=== PATIENT | male | born 1970 | race Caucasian/White ===

== ENCOUNTER 2018-08-06 11:57 | Emergency (ER) | payer OTHER ==
[~2018-08-06] VITALS: Ht 182.9 cm; Wt 72.6 kg
[~2018-08-06 11:57] MED LIST: METR500 PO; Omeprazole20 M1 PO; Roxicodone5 MG PO; Tetracycline H500 MG PO
[2018-08-06] MEDS ORDERED: DULO30 PO (12:05)
[2018-08-06 12:29] LABS: BASOPHILS ABSOLUTE AUTO 0.06 K/mm3 (0.00-0.23); BASOPHILS PERCENT AUTO 1 % (0-2); EOSINOPHILS ABSOLUTE AUTO 0.39 K/mm3 (0.00-0.68); EOSINOPHILS PERCENT AUTO 7 % (0-6); Hemoglobin 15.2 g/dL (13.5-17.5); IMMATURE GRAN ABSOLUTE AUTO 0.02 K/mm3 (0.00-0.10); IMMATURE GRAN PERCENT AUTO 0 % (0-1); LYMPHOCYTES ABSOLUTE AUTO 2.43 K/mm3 (0.84-5.20); LYMPHOCYTES PERCENT AUTO 43 % (21-46); MONOCYTES PERCENT AUTO 9 % (4-13); Mean Corpuscular HGB 30.5 pg (26.0-34.0); Mean Corpuscular Volume 92 fL (80-100); Mean Platelet Volume 9.7 fL (9.1-12.4); NEUTROPHILS ABSOLUTE AUTO 2.27 K/mm3 (1.96-9.15); NEUTROPHILS PERCENT AUTO 40 % (41-73); Platelet Count 205 K/mm3 (150-400); RDW Coefficient Variation 13.4 % (11.7-14.2); RDW Standard Deviation 45.7 fL (35.1-46.3); Red Blood Cell Count 4.99 M/mm3 (4.30-5.90); White Blood Cell Count 5.67 K/mm3 (4.00-11.30)
[2018-08-06 12:47] LABS: Alanine Aminotransfer (ALT/SGP 79 U/L (12-78); Albumin, Blood 3.7 g/dL (3.4-5.0); Alk Phos 102 U/L (50-136); Anion Gap 6 mmol/L (6-16); Aspartate Aminotrans (AST/SGOT 63 U/L (12-37); Bilirubin, Total 0.4 mg/dL (0.1-1.0); Blood Urea Nitrogen 17 mg/dL (8-24); Bun/Creatinine Ratio 19.1 (12.0-20.0); CO2, Blood 28 mmol/L (21-32); Calcium, Blood 9.1 mg/dL (8.5-10.1); Chloride, Blood 106 mmol/L (98-108); Creatinine, Blood 0.89 mg/dL (0.60-1.20); Globulin, Blood 3.6 g/dL (2.2-4.0); Glomerular Filtration Rate >60 (60-); Glucose, Blood 97 mg/dL (70-99); Potassium, Blood 4.9 mmol/L (3.5-5.5); Sodium, Blood 140 mmol/L (136-145); Total Protein, Blood 7.3 g/dL (6.4-8.2)
[2018-08-06] MEDS ORDERED: Percocet 10-321 EACH PO (16:06)
== END 2018-08-06 16:20 | disposition home or self-care (01) ==
LOC: ER 11:57
PROVIDERS: Physician Assistant
DX: R10.11 Right upper quadrant pain (principal); F17.210 Nicotine dependence, cigarettes, uncomplicated; Z90.49 Acquired absence of other specified parts of digestive tract; Z79.899 Other long term (current) drug therapy; Z79.891 Long term (current) use of opiate analgesic; Z88.8 Allergy status to other drugs, medicaments and biological substances
CPT/HCPCS: 36415; 74177; 80053; 83690; 85025; 96361; 96374; 96375; 96376; 99284-25; J2405; J3010; J7030; Q9967

== ENCOUNTER 2018-09-17 02:08 | Emergency (ER) | payer OTHER ==
[~2018-09-17] VITALS: Ht 182.9 cm; Wt 74.8 kg
[~2018-09-17 02:08] MED LIST changes: +DULO30 PO; +Percocet 10-321 EACH PO
[2018-09-17] MEDS ORDERED: GABA300 PO (02:43)
[2018-09-17] MEDS ORDERED: Norco 5-325 Ta1 EACH PO (03:22)
[2018-09-22] MEDS ORDERED: Omeprazole20 M1 PO (11:21)
[2018-09-22] MEDS ORDERED: Hydrocodone-Ap1 EA23 PO (12:02)
== END 2018-09-17 03:50 | disposition home or self-care (01) ==
LOC: ER 02:08
DX: S52.572A Other intraarticular fracture of lower end of left radius, initial encounter for closed fracture (principal); Z88.8 Allergy status to other drugs, medicaments and biological substances; Z79.899 Other long term (current) drug therapy; F17.210 Nicotine dependence, cigarettes, uncomplicated; W01.198A Fall on same level from slipping, tripping and stumbling with subsequent striking against other object, initial encounter
CPT/HCPCS: 25605; 73110; 76000; 96361; 96374; 96375; 99152; 99283-25; J1170; J2405; J7030

== ENCOUNTER 2019-06-09 15:39 | Emergency (ER) | payer OTHER ==
[~2019-06-09] VITALS: Ht 185.4 cm; Wt 81.7 kg
[~2019-06-09 15:39] MED LIST changes: +GABA300 PO; +Hydrocodone-Ap1 EA23 PO; +IBUP800; +Norco 5-325 Ta1 EACH; +Norco 5-325 Ta1 EACH PO; +Norco 7.5-3251 EACH PO; +ONDA8; +PANT40 PO; +Prevalite Pac4 G/PKT PO; +Prilosec Otc20 MG PO; +SUCR1 PO
[2019-06-09] MEDS ORDERED: INCARCERATION (16:00)
== END 2019-06-09 16:06 ==
LOC: ER 15:39
DX: S81.011A Laceration without foreign body, right knee, initial encounter (principal); S05.12XA Contusion of eyeball and orbital tissues, left eye, initial encounter; X58.XXXA Exposure to other specified factors, initial encounter; F17.200 Nicotine dependence, unspecified, uncomplicated
CPT/HCPCS: 12002; 99283-25